=== PATIENT | male | born 1985 | race Caucasian/White ===

== ENCOUNTER 2018-11-29 14:16 | Inpatient (IN) | payer MEDICAID ==
[~2018-11-29] VITALS: Ht 185.4 cm; Wt 78.8 kg
[2018-11-29] MEDS ORDERED: SERT50TA12 PO (14:53)
[2018-11-29] MEDS ORDERED: LEVE500T53 PO (14:53)
[2018-11-29] MEDS ORDERED: OLAN5TAB2 PO (14:53)
[2018-11-29 15:15] VITALS: BP 131/87
[2018-11-29] MEDS ORDERED: LORazepam 2 MG TABLET PO ONE (15:15)
[2018-11-29] MEDS ORDERED: LORazepam 2 MG TABLET PO PRN (15:15)
[2018-11-29] MEDS ORDERED: OLANZapine 10 MG TABLET PO ONE (15:15)
[2018-11-29] MEDS ORDERED: OLANZapine 5 MG RAPDIS TABLET PO PRN (15:15)
[2018-11-29] MEDS ORDERED: LORazepam 2 MG TABLET ONE (15:36)
[2018-11-29] MEDS ORDERED: OLANZapine 10 MG RAPDIS TABLET ONE (15:36)
[2018-11-29] MEDS ORDERED: INFLUENZA VIRUS VACCINE QVS 2019-20 (3YR+)/PF 60 MCG/0.5 ML SYRINGE IM ONE (16:15)
[2018-11-29] MEDS ORDERED: DiphenhydrAMINE HCL 50 MG/ML VIAL ONE (16:51)
[2018-11-29] MEDS ORDERED: ZIPRASIDONE MESYLATE 20 MG/VIAL IM ONE (17:00)
[2018-11-29] MEDS ORDERED: DiphenhydrAMINE HCL 50 MG/ML VIAL IM ONE (17:00)
[2018-11-29] MEDS ORDERED: DiphenhydrAMINE HCL 50 MG/ML VIAL IVP ONE (17:00)
[2018-11-29 17:12] VITALS: BP 138/91
[2018-11-30 01:12] VITALS: BP 134/97
[2018-11-30 08:13] VITALS: BP 105/54
[2018-11-30] MEDS: LevETIRAcetam 500 MG TABLET PO SCH (08:29)
[2018-11-30] MEDS ORDERED: BENZOCAINE/MENTHOL LOZENGE MM PRN (08:30)
[2018-11-30] MEDS ORDERED: DOCUSATE SODIUM 100 MG CAPSULE PO PRN (08:30)
[2018-11-30] MEDS ORDERED: ACETAMINOPHEN 325 MG TABLET PO PRN (08:30)
[2018-11-30] MEDS ORDERED: ONDANSETRON HCL 4 MG TABLET PO PRN (08:30)
[2018-11-30] MEDS ORDERED: MAG HYDROX/AL HYDROX/SIMETH ES 30 ML SUSPENSION UDCUP PO PRN (08:30)
[2018-11-30] MEDS ORDERED: BACITRACIN 28.4 GM OINTMENT TP PRN (08:30)
[2018-11-30] MEDS ORDERED: ALBUTEROL SULFATE HFA 90 MCG/PUFF 8 GM INHALER IH PRN (08:30)
[2018-11-30] MEDS ORDERED: LOPERAMIDE HCL 2 MG CAPSULE PO PRN (08:30)
[2018-11-30] MEDS ORDERED: PETROLATUM,WHITE 28 GM JELLY TP PRN (08:30)
[2018-11-30] MEDS ORDERED: CloNIDine HCL 0.1 MG TABLET PO PRN (08:30)
[2018-11-30] MEDS ORDERED: IBUPROFEN 600 MG TABLET PO PRN (08:30)
[2018-11-30] MEDS ORDERED: OMEPRAZOLE 20 MG CAPSULE PO PRN (08:30)
[2018-11-30] MEDS ORDERED: MAGNESIUM HYDROXIDE SUSPENSION 30 ML UDCUP PO PRN (08:30)
[2018-11-30 16:01] VITALS: BP 105/67
[2018-11-30] MEDS: OLANZapine 7.5 MG TABLET PO SCH (21:10)
[2018-12-01 07:17] LABS: BASOPHILS % (AUTO) 0.9 % (0.0-2.0); HEMATOCRIT 40.4 % (41-53); HEMOGLOBIN 13.7 g/dL (13.5-17.5); LYMPHOCYTES # (AUTO) 0.8 K/uL (1.0-4.8); LYMPHOCYTES % (AUTO) 28.6 % (22.0-44.0); MEAN CORPUSCULAR HEMOGLOBIN 29.9 pg (26.0-34.0); MEAN CORPUSCULAR HGB CONC 34.1 G/dL (31.0-37.0); MEAN CORPUSCULAR VOLUME 88 fL (80-100); MONOCYTES # (AUTO) 0.4 K/uL (0.1-1.0); MONOCYTES % (AUTO) 13.5 % (2.0-9.0); NEUTROPHILS # (AUTO) 1.4 K/uL (1.8-7.7); PLATELET COUNT (AUTO) 173 K/uL (150-450); RED BLOOD CELL COUNT(AUTO) 4.59 MIL/uL (4.50-5.90); RED CELL DISTRIBUTION WIDTH 14.8 % (11.5-14.5)
[2018-12-01 07:46] LABS: ALANINE AMINOTRANSFERASE 58 U/L (12-78); ALBUMIN 3.4 g/dL (3.4-5.0); ALKALINE PHOSPHATASE 73 U/L (46-116); ANION GAP 9 mmol/L (8-16); ASPARTATE AMINOTRANSFERASE 55 U/L (15-37); BILIRUBIN,TOTAL 1.1 mg/dL (0.1-1.0); CALCIUM, TOTAL 8.7 mg/dL (8.8-10.5); CARBON DIOXIDE 26 mmol/L (22-29); CHLORIDE 103 mmol/L (98-107); CREATININE 0.83 mg/dL (0.60-1.30); FREE T4 (FREE THYROXINE) 0.92 ng/dL (0.76-1.46); GLOMERULAR FILTR. RATE CALC > 60 mL/min (>60); GLUCOSE,RANDOM 84 mg/dL (70-110); POTASSIUM 4.1 mmol/L (3.5-5.1); SODIUM SERUM 138 mmol/L (136-145); TOTAL PROTEIN, SERUM 6.3 g/dL (6.4-8.2); UREA NITROGEN, BLOOD 17 mg/dL (7-18)
[2018-12-01] MEDS: SERTRALINE HCL 100 MG TABLET PO SCH (08:57)
[2018-12-01] MEDS: LevETIRAcetam 500 MG TABLET PO SCH (08:57)
[2018-12-01 09:46] VITALS: BP 132/76
[2018-12-01 16:00] VITALS: BP 114/69
[2018-12-01] MEDS: OLANZapine 7.5 MG TABLET PO SCH (20:20)
[2018-12-02] MEDS: SERTRALINE HCL 100 MG TABLET PO SCH (08:37)
[2018-12-02] MEDS: LevETIRAcetam 500 MG TABLET PO SCH (08:37)
[2018-12-02 08:53] VITALS: BP 116/66
[2018-12-02 16:09] VITALS: BP 122/80
[2018-12-02] MEDS ORDERED: OLAN7.5T2 PO (16:21)
[2018-12-02] MEDS ORDERED: SERT100T12 PO (16:21)
== END 2018-12-02 17:53 | disposition home or self-care (01) | DRG 750 ==
LOC: B3A 15:14
PROVIDERS: ADMIT Psychiatry & Neurology Psychiatry; ATTEND Psychiatry & Neurology Psychiatry
DX: F25.0 Schizoaffective disorder, bipolar type (principal); R56.9 Unspecified convulsions; Z59.0 Homelessness; F41.9 Anxiety disorder, unspecified; G47.00 Insomnia, unspecified; K59.00 Constipation, unspecified; Z28.21 Immunization not carried out because of patient refusal; Z91.19 Patient's noncompliance with other medical treatment and regimen; Z91.5 Personal history of self-harm
CPT/HCPCS: 84439; 90686; J1200; J3486; Q0162